=== PATIENT | female | born 1990 | race Caucasian/White ===

== ENCOUNTER 2021-04-29 03:20 | Outpatient (CLI) | payer MEDICAID, SELFPAY ==
[2021-04-29 03:38] VITALS: BP 134/83; PULSE 84; TEMP 37.1
[2021-04-29 03:50] VITALS: BMI 24.3
[2021-04-29 04:16] VITALS: PULSE 88; O2SAT 95
[2021-04-29 04:43] LABS: ROM Internal Control Test YES-OK TO RESULT pt. (Internal QC); ROM Patient Test Negative (Negative)
--- NOTE | 2021-05-06 16:31 | PCM.PN.OB ---
Subjective Subjective presents at 36w5d for leakage of fluid. Objective Data Objective Data Vital Signs: Vital Signs Temp Pulse BP Pulse Ox 98.7 F 88 134/83 H 95 04/29/21 03:38 04/29/21 04:16 04/29/21 03:38 04/29/21 04:16 Weight: 129 lb Body Mass Index (BMI) 24.3 NST FHR Rate Baby A Baseline: 145 Variability:: Moderate Accelerations:: 15 x 15 Decelerations:: None NST Reactive:: Yes FHR Category:: Category I Uterine Activity:: Irregular Assessment & Plan (1) Vaginal discharge: PLAN: 1) ROM plus negative. Membranes intact 2) No signs of labor 3) D/C home
== END 2021-04-29 05:10 | disposition home or self-care (01) ==
LOC: WPOUT 03:27 → WP 03:27
PROVIDERS: Referring Provider Advanced Practice Midwife; Visit Provider Advanced Practice Midwife
DX: O42.90 Premature rupture of membranes, unspecified as to length of time between rupture and onset of labor, unspecified weeks of gestation (principal); Z3A.36 36 weeks gestation of pregnancy
CPT/HCPCS: 59050; 84112; 99218; G0378

== ENCOUNTER 2021-09-19 08:42 | Day surgery (SDC) | payer MEDICAID, SELFPAY ==
--- NOTE | 2021-09-11 11:36 | PCM.HP.BLA ---
History and Physical Date of Admission: 09/19/21 Pre-Op History and Physical- done by Dr. Alirio Larkin ? HPI: The patient is a 31 year old female presenting for pre-operative visit. She is scheduled for laparopscopic bilateral salpingectomy, for sterilization on 09/12/21. Procedure discussed along with risks, benefits and complications. Other alternatives discussed for management. Consent form signed? Yes. ? ? PAST MEDICAL HISTORY PAST MEDICAL HISTORY Diagnosis Date ? Asthma ? ? Condyloma acuminatum 12/03/2009 ? Family history of carrier of genetic disease 10/04/2020 ? 10/04/2020 Patient's daughter is a carrier of CF. TKRN ? Genital herpes 2015 ? + culture ? Genital warts ? ? Hepatitis C ? ? kidney stones ? ? Kidney stones ? ? Mental disorder ? ? Narcotic addiction (HCC) ? ? depression ? ? ? PAST SURGICAL HISTORY PAST SURGICAL HISTORY Procedure Laterality Date ? DELIVERY ONLY ? 01/23/2010 ? , low transverse ? REPAIR INGUINAL HERNIA ? ? ? BILATERAL ? TONSILLECTOMY PRIMARY/SECONDARY <AGE 12 ? ? ? Tonsillectomy AND ADNOIDECTOMY ? ? ? CURRENT MEDICATIONS Current Outpatient Medications Medication Sig Dispense Refill ? acetaminophen (TYLENOL) 500 mg tablet Take 2 tablets by mouth every 6 hours as needed for pain. (Patient not taking: Reported on 05/24/2021 ) 30 tablet 0 ? docusate sodium (COLACE) 100 mg capsule Take 2 capsules by mouth daily at bedtime. (Patient not taking: Reported on 05/24/2021 ) 30 capsule 0 ? ibuprofen (MOTRIN) 600 mg tablet Take 1 tablet by mouth every 6 hours as needed for pain. (Patient not taking: Reported on 05/24/2021 ) 20 tablet 0 ? prochlorperazine (COMPAZINE) 10 mg tablet Take 1 tablet by mouth every 6 hours as needed (nausea). (Patient not taking: Reported on 07/05/2021 ) 30 tablet 1 ? buprenorphine SL (SUBUTEX) 8 mg subl Dissolve 1 tablet under the tongue twice daily. ? ? ? PNV95/FERROUS FUMARATE/FA ( ORAL) Take by mouth. ? ? ? No current facility-administered medications for this visit. ? ? ALLERGIES: Shellfish Derived, Latex, and Paper Tape [Other] ? PERSONAL HISTORY: SOCIAL HISTORY Social History ? Tobacco Use ? Smoking status: Never Smoker ? Smokeless tobacco: Never Used Vaping Use ? Vaping Use: Never used Substance Use Topics ? Alcohol use: No ? Drug use: Not Currently ? ? Comment: has used heroine in past ? FAMILY HISTORY: FAMILY HISTORY FAMILY HISTORY Problem Relation Age of Onset ? No Known Problems Mother ? ? No Known Problems Father ? ? No Known Problems Sister ? ? No Known Problems Brother ? ? Cancer Maternal Grandmother ? ? Arthritis Maternal Grandmother ? ? Hypertension Maternal Grandmother ? ? Diabetes Maternal Grandfather ? ? Emphysema Maternal Grandfather ? ? Heart Maternal Grandfather ? ? Hypertension Maternal Grandfather ? ? Heart Paternal Grandmother ? ? Hypertension Paternal Grandmother ? ? Kidney Disease Paternal Grandmother ? ? Hypertension Paternal Grandfather ? ? Heart Paternal Grandfather ? ? No Known Problems Daughter ? ? No Known Problems Daughter ? ? Cancer Maternal Aunt ? ? ? REVIEW OF SYMPTOMS: GENERAL: denies fevers or chills ENDOCRINOLOGY: has not been on steroids Cardiology : denies palpitations or chest pain Respiratory: denies SOB or cough Hematology: denies history of prolonged bleeding or easy bruising or VTE Allergy: Denies history of personal or family history of allergy to anesthesia ? PHYSICAL EXAMINATION: ? VITALS: Last menstrual period 08/15/2020, currently . ? GENERAL: The patient is well nourished, well hydrated in no acute distress. , The patient is oriented to time, place, and person. NECK: Supple. No lynphadenopathy, normal thyroid, no thyromegaly. LUNGS: Clear to auscultation bilaterally. no wheezes, rhonchi or rales HEART: Regular rate and rhythm, Normal heart sounds and No murmurs or gallops IMPRESSION: sterilization request ? PLAN: The risks/benefits/alternatives and personal involved for the planned laparoscopic bilateral salpingectomy were reviewed with the patient. Her questions were answered to her satisfaction and she desires to proceed. Consent was signed. I reviewed with her postop instructions and expectations. ? ? I have reviewed and updated past medical and surgical history, medications and allergies Thomas Larkin MD Office Visit on 09/10/2021 Office Visit on 09/10/2021 Revision History
[2021-09-19 09:23] VITALS: BP 117/77; PULSE 63; RESP 18; TEMP 36.6; O2SAT 100; BMI 23.8
[2021-09-19] MEDS: Acetaminophen 500 MG Tablet 1000 MG PO (09:27)
[2021-09-19] MEDS: Lactated Ringers 1,000 ML 15 ML IV (09:27)
[2021-09-19] MEDS: Celecoxib 200 MG Capsule PO (09:27)
[2021-09-19 09:39] LABS: Hematocrit 37.8 % (37-47); Hemoglobin 12.2 g/dL (12.0-15.0); Mean Corp Hgb Conc 32.3 g/dL (32-36); Mean Corpuscular Hgb 28.3 pg (27.0-32.0); Mean Corpuscular Volume 87.7 fL (81-99); Mean Platelet Vol. 9.3 fl (6.2-12.0); Platelet Count 302 K/mm3 (150-450); RBC Distribution Width CV 14.1 % (11.6-14.6); RBC Distribution Width SD 45.2 fl (35.1-43.9); Red Blood Count 4.31 M/mm3 (4.2-5.4); White Blood Count 6.1 K/mm3 (4.4-11.0)
[2021-09-19 09:44] LABS: AST(SGOT) 28 U/L (15-37); Alanine Aminotransfer ALT/SGPT 25 U/L (13-56); Albumin, Serum 4.1 g/dL (3.2-5.0); Alkaline Phosphatase 58 U/L (45-117); Bilirubin, Direct 0.11 mg/dL (0.00-0.30); Globulin 3.5 g/dL (2.2-4.2); Protein, Total 7.6 g/dL (6.4-8.2)
[2021-09-19 09:53] LABS: Internal QC Validated? YES +Cl - CLEAR BKGD; Pregnancy, Urine Negative Negative
--- NOTE | 2021-09-19 10:00 | FALS_PTH ---
PATIENT: MUKESH MONROE [place] [facility] [id number] AGE/SX: 31/F ROOM: RE09/19/[address]: Dr. Libia Garduno MD : 1990 BED: DIS: 09/19/2021 SPEC #: [id number] RECD: 09/19/21 13:35 STATUS: SOLOMON LOGAN #: [id number] BREEZY: 09/19/21 10:[address]: Libia Garduno DEPT: SURGICAL PATHOLOGY RECD BY: Kadi Rosenbaum ENTERED: 09/19/21 14:01 SP TYPE: FALL TUBES OTHR DR: No Primary Care Phys Tissues: Fallopian tube Procedures: Surgery Specimen Level II HEADER OPERATION: Laparoscopic salpingectomy, IUD removal PRE-OP DIAGNOSIS: Sterilization TISSUE SUBMITTED: Bilateral fallopian tubes MICROSCOPIC DIAGNOSIS Right and left fallopian tubes, bilateral salpingectomies: Complete cross-sections of fallopian tubes. Benign paratubal cyst. AM:rg 09/20/2021 MICROSCOPIC DESCRIPTION Slides are reviewed. GROSS DESCRIPTION Received in fixative is one container labeled with the patient's name and designated bilateral fallopian tubes. The specimen consists of bilateral fallopian tubes including fimbrial ends. One fallopian tube measures 5 cm in length and 0.5 cm in diameter. The second fallopian tube received in multiple pieces measures in aggregate 6 cm in length and up to 0.5 cm in diameter. The fallopian tubes are not identified as right or left. Sections reveal unremarkable cut surfaces. Liner Reroll Tender sections are submitted in two cassettes as follows: 1 - intact fallopian tube, 2 - fallopian tube received in multiple pieces. / SJ:taj 09/19/2021 TC:5 CPT: 44536 x2
--- NOTE | 2021-09-19 10:03 | PCM.DC ---
Discharge Instructions Diet Discharge Diet: No restrictions Activity May resume sexual activity in: 1 week Dressing / Incision Call your doctor if your incision/area has: Sudden Increased Bleeding and Foul Smelling Discharge Call your doctor if you observe: Fever of 101 or Higher Cleanse incision/area with: Soap & Water (Your incisions have skin glue and it can get wet. Leave on until it falls off) Follow Up Care Please Follow Up With: Libia Garduno MD When: In my office or virtual visit in 1-2 weeks or as needed Test Results: Test results from this visit will be discussed in further detail at your follow-up appointment, if applicable. Discharge Plan Admission Primary Reason for Your Visit: tubal sterilization Attending Provider: Libia Garduno Primary Care Provider: Natalia Matthew Primary Discharge Orders/Prescriptions Prescriptions: New ibuprofen [ibuprofen] 600 MG tablet 600 mg PO Q6H PRN (Reason: Pain) 8 Days Qty: 20 RF: 1 No Action buprenorphine HCl [Subutex] 8 mg Tablet, Sublingual 8 mg SUBLINGUAL BID RF: 0 1 tab tablet 1 tab PO/SL DAILY RF: 0 Referrals / Follow Up: Care Physician,No Primary [Primary Care Provider] - Disposition Disposition (needs filled in before D/C Order can be placed): Home, Self Care
[2021-09-19 10:04] LABS: Partial Thromboplast Time 31.9 Seconds (24.1-36.2)
[2021-09-19] MEDS: Bupivacaine Mpf 0.5% 30 ML VIAL (10:14)
--- NOTE | 2021-09-19 10:40 | OP.PCM_ITS ---
Problems Associated Problem List Diagnoses (1) Sterilization: (2) Encounter for IUD removal: Report of Operation Date of Procedure: 09/19/21 Pre-Operative Diagnosis: sterilization request, IUD removal Post-Operative Diagnosis: same Surgery/Procedure Performed:: laparoscopic bilateral salpingectomy, IUD removal Description of Surgical Findings:: normal uterus, tubes, ovaries and cervix Surgeon: Libia Garduno soaking pit operator: None Type of Anesthesia: General Anesthesiologist: Stephania Mayers Special Medications: none Specimen's removed: bilateral fallopian tubes Drains: none Estimated Blood Loss (mL): 10 Fluids Replaced: 800 Description of Procedure: The patient was taken to the operating room where she was prepped and draped in the dorsolithotomy position. A weighted speculum was placed in the vagina and the anterior lip of the cervix was grasped with a tenaculum. A [place] clamp was used to reach inside the cervix and grasped the IUD strings. The IUD was removed intact without difficulty. The [employer] uterine manipulator was placed and the remainder of the instruments were removed from the vagina. Attention was turned to the abdomen. All port sites were infiltrated with 0.5% Marcaine before skin incisions were made. A 5 mm intraumbilical incision was made. The anterior abdominal wall was tented up with 2 towel clamps while a 5 mm blade less trocar and sleeve were directly inserted. Intraperitoneal placement was confirmed with the laparoscope. The pneumoperitoneum was created and the underlying abdominal contents were intact. The patient was placed in Trendelenburg. Right and left lower quadrant ports were placed under direct visualization lateral to the inferior epigastric vessels. The bowel was swept away and the above findings were noted. The Enseal device was used to clamp seal and transect the antimesenteric portions of the right tube to the cornual insertion of the uterus. The tube was amputated from the uterus and the pedicles were all confirmed to be hemostatic. The same procedure was performed on the contralateral side. The specimens were brought out through a 5 mm port. The pedicles were again examined and found to be hemostatic. The lateral ports were removed under direct visualization and no active bleeding was noted. The pneumoperitoneum was released. The skin incisions were closed with Monocryl suture in a subcuticular fashion and skin glue. The vaginal instruments were removed and the vaginal sweep was completed by me. The entire procedure was performed by me with assistance. All sponge and needle counts were correct and the patient was taken to the recovery room in stable condition. Grafts/Implants Used: none Procedure Start Time: 10:14 Procedure Stop Time: 10:38 Complications none Admit VTE Documentation VTE Present on Admission: No VTE Mechan Device Prophylaxis: SCD's VTE Pharm Prophylaxis ordered?: No Reason prophylaxis not ordered:: Procedure Not Indicated
[2021-09-19 11:00] VITALS: BP 117/77; BP 120/95; PULSE 81; RESP 16; TEMP 36.2; O2SAT 100
[2021-09-19 11:15] VITALS: BP 117/77; BP 126/96; PULSE 66; RESP 16; O2SAT 98
[2021-09-19 11:39] VITALS: BP 117/77; BP 122/77; PULSE 78; RESP 16; O2SAT 97
[2021-09-19 11:55] VITALS: BP 117/77; BP 119/81; PULSE 78; RESP 16; TEMP 36.4; O2SAT 100
[2021-09-19] MEDS: Ibuprofen 600 MG Tablet PO (12:29)
[2021-09-19 13:27] VITALS: BP 100/44; BP 117/77; PULSE 68; RESP 16; TEMP 36.8; O2SAT 98
== END 2021-09-19 23:59 | disposition home or self-care (01) ==
LOC: SDC 08:46 → AC 08:49
PROVIDERS: Anesthesiology; Visit Provider Obstetrics & Gynecology
PROC: (CPT 58661; principal; 2021-09-19 09:45)
DX: Z30.2 Encounter for sterilization (principal); Z30.432 Encounter for removal of intrauterine contraceptive device
CPT/HCPCS: 58661; 58300; 58301; 00840; 80076; 81025; 85027; 85610; 85730; 87426; 88302; J7120; C1760; J2405